=== PATIENT | male | born 1990 | race Two or more races ===

== ENCOUNTER 2019-08-05 09:13 | Day surgery (SDC) | payer OTHER ==
[~2019-08-05] VITALS: Ht 167.6 cm; Wt 83.9 kg
[~2019-08-05 09:13] MED LIST: LIDOCAINE/PF 1%-EPI 1:200K, 30 ML ONE; ROPIvacaine/PF 0.5%, 30 ML ONE
[2019-08-05] MEDS ORDERED: ACETAMINOPHEN 500 MG TABLET PO STA (09:40)
[2019-08-05] MEDS ORDERED: SCOPOLAMINE 1MG PATCH TD SCH (09:40)
[2019-08-05 09:47] VITALS: BP 140/83
[2019-08-05] MEDS ORDERED: NO MEDS PER PT (09:47)
[2019-08-05] MEDS ORDERED: LACTATED RINGERS 1,000 ML IV STA (09:51)
[2019-08-05] MEDS ORDERED: SCOPOLAMINE 1MG PATCH TD ONE (09:54)
[2019-08-05] MEDS ORDERED: ACETAMINOPHEN 500 MG TABLET ONE (09:54)
[2019-08-05] MEDS ORDERED: PLEASE ENTER ALLERGIES MC SCH (10:00)
[2019-08-05] MEDS ORDERED: LACTATED RINGERS 1,000 ML IV SCH (10:00)
[2019-08-05] MEDS ORDERED: PLEASE ENTER HEIGHT AND WEIGHT MC SCH (10:00)
[2019-08-05] MEDS ORDERED: MIDAZOLAM 1 MG/ML, 2ML ONE (10:42)
[2019-08-05] MEDS ORDERED: FENTANYL PF 250 MCG/5ML ONE (10:42)
[2019-08-05] MEDS ORDERED: LIDOCAINE PF 2%, 5ML ONE (11:32)
[2019-08-05] MEDS ORDERED: FENTANYL PF 100 MCG/2ML IV PRN (12:00)
[2019-08-05] MEDS ORDERED: OXYcodone 5 MG/5 ML ORAL.SOL UDC PO PRN (12:00)
[2019-08-05] MEDS ORDERED: HYDROmorphone 1 MG/ML, 1ML INJ IVPush PRN (12:00)
[2019-08-05] MEDS ORDERED: ONDANSETRON ODT 8 MG PO PRN (12:00)
[2019-08-05] MEDS ORDERED: PROMETHAZINE 25 MG SUPP PR PRN (12:00)
[2019-08-05] MEDS ORDERED: ONDANSETRON 2MG/ML, 2ML IV PRN (12:00)
[2019-08-05] MEDS ORDERED: LORazepam 2 MG/ML, 1ML IVPush PRN (12:00)
[2019-08-05] MEDS ORDERED: PROMETHAZINE 25 MG/ML, 1ML IV PRN (12:00)
[2019-08-05] MEDS ORDERED: PROPOFOL 50 ML ONE (12:14)
[2019-08-05] MEDS ORDERED: ONDANSETRON 2MG/ML, 2ML ONE (12:43)
[2019-08-05] MEDS ORDERED: DEXAMETHASONE 4 MG/ML, 1ML ONE (12:43)
[2019-08-05] MEDS ORDERED: CEFAZOLIN 1,000 MG ONE (12:43)
[2019-08-05] MEDS ORDERED: PROPOFOL 10 MG/ML, 20ML ONE (12:43)
== END 2019-08-05 15:30 | disposition home or self-care (01) ==
LOC: OUT 09:13
PROVIDERS: ATTEND Orthopaedic Surgery
DX: S83.511A Sprain of anterior cruciate ligament of right knee, initial encounter (principal); S83.271A Complex tear of lateral meniscus, current injury, right knee, initial encounter; S83.221A Peripheral tear of medial meniscus, current injury, right knee, initial encounter; X58.XXXA Exposure to other specified factors, initial encounter; Y93.89 Activity, other specified; Y92.89 Other specified places as the place of occurrence of the external cause; Y99.8 Other external cause status
CPT/HCPCS: 29881; 29882; 29888; 64447; C1713; C1762; J0690; J1100; J2250; J2405; J2704; J2795; J3010; J3490; J7120